=== PATIENT | female | born 1970 | race Caucasian/White ===

== ENCOUNTER → 2019-03-22 | Outpatient (CLI) | payer BC ==
[~2019-03-22] VITALS: Ht 170.2 cm; Wt 147.4 kg
[~2019-03-22] MED LIST: ALLEGRA ALLERG180 MG PO; BYSTOLIC 5 MG5 M1 PO; CRESTOR20 MG PO; ERGOCALCIF50000 UNIT PO; GINGER250 MG PO; HYOSCYAMINE0.125 MG PO; MOBIC15 MG PO; TELMISARTAN-HC1 EACH PO; TURMERIC500 M2 PO; TYLENOL EXTRA500 MG PO; VITAMINC500 PO; ZINC CHELATE50 MG PO; [UNRECOGNIZED DRUG - OTHER] PO
--- NOTE | 2019-03-22 11:03 | P ---
[facility] [place] [address] PROCEDURE REPORT Name: JONATHANLUCRECIA Kvng Room #: REG [facility]#: [id number] Admission: 03/22/19 Attend Phys: Yakov Brady Discharge: Date of : 74 Report #: [id number] THIS REPORT FOR: //name// CC: Yakov Ventura DATE OF SERVICE: 03/22/2019 PROCEDURE PERFORMED: Upper endoscopy with biopsies. HISTORY OF PRESENT ILLNESS: The patient is a 48-year-old female, seen in the office on 03/05/2019, with complaints of intermittent episodes of abdominal pain, nausea and diarrhea. These episodes started in 08/2017. No previous history of endoscopy. She is scheduled for EGD and colonoscopy today. Denies any significant heartburn symptoms. She has had a previous lap band that was causing significant reflux, but this was removed surgically in 09/2017. The patient does take meloxicam. Plan is for EGD and colonoscopy today. DESCRIPTION OF PROCEDURE: The risks and benefits of the procedure were explained to the patient, those risks including but not limited to bleeding, perforation and the risk of sedation. She understood these risks and gave informed consent. Sedation was given using propofol per anesthesia. Next, using a standard Olympus upper endoscope, the scope was placed through the patient's mouth and advanced under direct vision through the esophagus, stomach and into the second portion of the duodenum. In the upper esophagus, a small inlet patch was noted. The mid esophagus was normal. In the distal esophagus, possible short segment of Monique's was noted. Biopsies were obtained. No esophagitis. Upon entering the stomach, a small- to medium-size hiatal hernia was noted. Overall, the gastric mucosa was normal in the fundus and body; however, in the antrum, there was mild gastritis with a single erosion. Biopsies were obtained to rule out H. pylori. The pylorus was normal and patent. The duodenal bulb, first and second portion were normal. Biopsies were obtained to rule out the possibility of celiac sprue. The scope was then withdrawn and the procedure terminated. The patient tolerated the procedure well. IMPRESSION: 1. 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 2. Hiatal hernia, small to medium size. 3. Mild gastritis with single antral erosion. 4. Otherwise, normal upper endoscopy. RECOMMENDATIONS: 1. Await biopsy results. 2. Recommend trial of daily PPI therapy. [address] [address] PROCEDURE REPORT Name: LUCRECIA CASTILLO Room #: REG CLI Marsha#: [id number] Admission: 03/22/19 Attend Phys: Yakov Brady Discharge: Date of : 74 Report #: [id number] 3. We will proceed with colonoscopy next today. Thank you for allowing me to participate in her care. <ELECTRONICALLY SIGNED> By: Yakov Salcedo MD 03/22/19 1103 D: [id number] Yakov Salcedo MD /greg
--- NOTE | 2019-03-22 11:03 | P ---
[facility] [place] [address] PROCEDURE REPORT Name: LUCRECIA CASTILLO Room #: [facility] [id number] Admission: 03/22/19 Attend Phys: Yakov Brady Discharge: Date of : 74 Report #: [id number] THIS REPORT FOR: //name// CC: Yakov Ventura MD DATE OF SERVICE: 03/22/2019 PROCEDURE PERFORMED: Colonoscopy with biopsies. HISTORY OF PRESENT ILLNESS: The patient is a 48-year-old female who was seen in the office on 03/05/2019 with complaints of intermittent episodes of abdominal pain, nausea and diarrhea. Upper endoscopy was just performed showing possible short segment Monique's, small hiatal hernia, gastritis with gastric antral erosion. Plan is for colonoscopy. The patient has never had a colonoscopy in the past. No family history of colon cancer or inflammatory bowel disease. DESCRIPTION OF PROCEDURE: The risks and benefits of the procedure were explained to the patient, those risks including but not limited to bleeding, perforation and the risk of sedation. She understood these risks and gave informed consent. Sedation was given using propofol per anesthesia. Next, a digital rectal exam was initially performed, which was normal. Next, using a standard Olympus colonoscope, the scope was placed in the patient's anus and advanced under direct vision to the cecum. The overall prep was excellent. The cecum and ileocecal valve were normal in appearance. Terminal ileum was intubated and normal in appearance. The ascending, transverse and descending colon were normal. Random biopsies were obtained to rule out the possibility of microscopic colitis. Multiple diverticula were noted in the sigmoid colon, no evidence of inflammation, otherwise normal. The rectal mucosa was normal. On retroflexion, no abnormalities were noted. The scope was then withdrawn and the procedure terminated. The patient tolerated the procedure well. IMPRESSION: 1. Sigmoid diverticulosis. 2. Otherwise, normal colonoscopy. RECOMMENDATIONS: 1. Await biopsy results. 2. Repeat colonoscopy in [address] [address] PROCEDURE REPORT Name: LUCRECIA CASTILLO Room #: REG Siobhan Larson#: [id number] Admission: 03/22/19 Attend Phys: Yakov Brady Discharge: Date of : 74 Report #: [id number] Thank you for allowing me to participate in her care. <ELECTRONICALLY SIGNED> By: Yakov Salcedo MD 03/22/19 1103 [id number] Yakov Salcedo MD /nt
--- NOTE | 2019-03-25 16:06 | PATH ---
[facility] [address] [address] PATHOLOGY RPT PROCEDURE Name: CARA JUAN Kvng Room #: REG ALE Patricia.#: [id number] Admission: 03/22/19 Date of : 74 Discharge: Report #: [id number] Path Case #: [id number] [facility] Accession Number: [id number] . 01 Material submitted: . PART A: duodenum - BIOPSY DUODENUM R/O CELIAC SPRUE HX ABD PAIN PART B: stomach - BIOPSY GASTRITIS R/O H PYLORI PART C: esophagus - BIOPSY DISTAL ESOPHAGUS R/O BARRETTS. Modifiers: distal PART D: colon - RANDOM COLON BIOPSY R/O MICROSCOPIC COLITIS . 01 Clinical history: . Abdominal pain, gastritis, hiatal hernia, possible Monique's, diverticulosis. . 02 Diagnosis: A. "BX duodenum R/O celiac sprue HX abd pain", biopsy: - Small bowel/duodenal mucosa with focal minimal acute duodenitis; no evidence of celiac sprue. . B. "BX gastritis R/O H. pylori", biopsy: - Gastric mucosa with mild reactive changes and mild chronic inflammation. - Negative H. pylori immunohistochemical stain (block B1); control reacted appropriately. . C. "BX distal esophagus R/O Monique's", biopsy: - Esophageal squamous mucosa and gastric cardiac-type mucosa with mild to moderate chronic inflammation including rare intraepithelial eosinophils and minute focus of intestinal metaplasia; no dysplasia seen. (See comment) . D. "Random colon BX R/O microscopic colitis", biopsy: - Colonic mucosa with reactive changes including prominent lymphoid aggregates; no evidence of active, lymphocytic or collagenous colitis and no dysplasia seen. . (CLW:jack; 03/25/2019) QMS/03/25/2019 . 02 Comment: The miniute focus of intestinal metaplasia may represent a small and/or partially sampled segment of Monique's mucosa. Clinical and endoscopic correlation is required. (CLW:jack; 03/25/2019) . 02 Electronically signed: . Indiana Estrada MD, Pathologist NPI- [id number] [address] [address] PATHOLOGY RPT PROCEDURE Name: CARA JUAN Room #: REG ALE Larson#: [id number] Admission: 03/22/19 Date of : 74 Discharge: Report #: [id number] Path Case #: [id number] . 01 Gross description: . A. Received in formalin labeled "Cara Juan, duodenum rule out celiac sprue" is a 1.0 x 0.4 x 0.2 cm aggregate of keyes-brown mucosa fragments. The specimen is submitted in A1. . B. Received in formalin labeled "Cara Juan, biopsy gastritis rule out H. pylori" is a 1.0 x 0.6 x 0.2 cm aggregate of keyes-brown mucosa fragments. The specimen is submitted in B1. . C. Received in formalin labeled "Cara Juan, biopsy distal esophagus rule out Monique's" is a 0.6 x 0.5 x 0.2 cm aggregate of keyes-brown mucosa fragments. The specimen is submitted in C1. . D. Received in formalin labeled "Cara Juan, random colon BX rule out microscopic colitis" is a 1.6 x 0.5 x 0.1 cm aggregate of keyes-brown mucosa fragments. The specimen is submitted in D1. ([facility]; 03/24/2019) SYC/SYC . 02 Pathologist provided ICD-10: K29.80, K29.50, K20.9 . 02 CPT . 964196, 144185, 980338, 793223, [id number] Specimen Comment: A courtesy copy of this report has been sent to Specimen Comment: [phone], . Specimen Comment: Report sent to / DR JONES Performed at: [address], [place], [place] [id number] MD Faisal Cnonors MD Phone: [phone] Performed at: [address] [id number] MD Ebony Nowak MD Phone: [phone]
== END | disposition home or self-care (01) ==
LOC: GI 07:45
DX: K63.89 Other specified diseases of intestine (principal); K57.30 Diverticulosis of large intestine without perforation or abscess without bleeding; K29.50 Unspecified chronic gastritis without bleeding; K20.9 Esophagitis, unspecified; K29.80 Duodenitis without bleeding; K44.9 Diaphragmatic hernia without obstruction or gangrene; I10 Essential (primary) hypertension; E78.00 Pure hypercholesterolemia, unspecified; F17.210 Nicotine dependence, cigarettes, uncomplicated; K21.9 Gastro-esophageal reflux disease without esophagitis; Z87.442 Personal history of urinary calculi; Z98.890 Other specified postprocedural states; Z90.710 Acquired absence of both cervix and uterus; Z79.899 Other long term (current) drug therapy; Z91.041 Radiographic dye allergy status
CPT/HCPCS: 62110; 62900